=== PATIENT | male | born 1945 | race Caucasian/White ===

== ENCOUNTER 2017-01-07 08:49 | Emergency (ER) | payer MEDICARE ==
[2017-01-07 09:05] VITALS: BP 139/75
--- NOTE | 2017-01-07 09:46 | UC ---
Respiratory Complaint HPI - HPI Summary HPI Summary: congestion, sore throat in the morning, mild cough for about two weeks. Otc meds have not helped. no fever or pain. - History of Current Complaint Chief Complaint: UCRespiratory Stated Complaint: HEAD COLD Time Seen by Provider: 01/07/17 09:39 Hx Obtained From: Patient Onset/Duration: Gradual Onset Timing: Constant Severity Initially: Moderate Severity Currently: Moderate Character: Cough: Nonproductive Aggravating Factors: Deep Breaths Alleviating Factors: Nothing Associated Signs And Symptoms: Positive: URI, Nasal Congestion, Hoarseness. Negative: Dyspnea, Fever, Chills, Pleuritic Chest Pain, Wheezing, Hemoptysis, Dizziness, Calf Pain, Calf Swelling, Sinus Discomfort - Allergies/Home Medications Allergies/Adverse Reactions: Allergies Allergy/AdvReac Type Severity Reaction Status Date / Time No Known Allergies Allergy Verified 01/07/17 08:55 Home Medications: Home Medications Colchicine [Mitigare] 0.6 mg PO PRN 01/07/17 [History] Glipizide [Glipizide ER] 2.5 mg PO DAILY 01/07/17 [History Confirmed 01/07/17] Losartan Potassium 100 mg PO DAILY 01/07/17 [History Confirmed 01/07/17] Meloxicam [Mobic] 15 mg PO DAILY 01/07/17 [History Confirmed 01/07/17] Omeprazole CAP* [Prilosec CAP* 20 MG] 20 mg PO BID 01/07/17 [History Confirmed 01/07/17] Simvastatin TAB(NF) [Zocor 10 MG (NF)] 10 mg PO DAILY 01/07/17 [History Confirmed 01/07/17] metFORMIN* [Glucophage 500 MG TAB *] 500 mg PO BID 01/07/17 [History Confirmed 01/07/17] PMH/Surg Hx/FS Hx/Imm Hx Previously Healthy: No Endocrine History: Diabetes Cardiovascular History: Hypertension - Surgical History Surgical History: Yes Surgery Procedure, Year, and Place: kidney stent, hernia - Family History Known Family History: Positive: Other - no related uri symptoms. - Social History Alcohol Use: Rare Substance Use Type: None Smoking Status (MU): Former Smoker Type: Cigarettes Have You Smoked in the Last Year: No When Did the Patient Quit Smoking/Using Tobacco: 45 YRS AGO Review of Systems ENT: Sinus Congestion Respiratory: Cough All Other Systems Reviewed And Are Negative: Yes Physical Exam Triage Information Reviewed: Yes Appearance: Well-Appearing, No Pain Distress, Well-Nourished Vital Signs: Initial Vital Signs Temp 97.8 F 01/07/17 08:57 Pulse 63 01/07/17 08:57 Resp 18 01/07/17 08:57 BP 139/75 01/07/17 08:57 Pulse Ox 99 01/07/17 08:57 Vital Signs Reviewed: Yes Eye Exam: Normal Eyes: Positive: Conjunctiva Clear ENT Exam: Normal ENT: Positive: Pharyngeal erythema, Nasal congestion, TMs normal. Negative: Tonsillar swelling, Tonsillar exudate, Trismus Neck exam: Normal Neck: Positive: Supple, Nontender, No Lymphadenopathy Respiratory Exam: Normal Cardiovascular Exam: Normal Abdominal Exam: Normal Musculoskeletal Exam: Normal Neurological Exam: Normal Psychological Exam: Normal Skin Exam: Normal UC Diagnostic Evaluation - Laboratory O2 Sat by Pulse Oximetry: 99 Respiratory Course/Dx - Differential Dx/Diagnosis Differential Diagnosis/HQI/PQRI: Airway Obstruction, Aspiration, Asthma, CHF, Pulmonary Edema, Exacerbation Of COPD, Influenza, Laryngitis, Lower Resp Infection, Pulmonary Embolism, Sinusitis, Tuberculosis Provider Diagnoses: uri Discharge - Discharge Plan Condition: Good Disposition: HOME Prescriptions: Azithromyxin JASON (NF) [Z-Jason (Zithromax) 250 mg tabs #6] 2 tab PO .TODAY, THEN 1 DAILY #6 tab Patient Education Materials: Upper Respiratory Infection (ED) Referrals: Dakota Martino DO [Primary Care Provider] - If Needed
== END 2017-01-07 09:50 | disposition home or self-care (01) ==
LOC: UCCORT 08:49
DX: J06.9 Acute upper respiratory infection, unspecified (principal); E11.9 Type 2 diabetes mellitus without complications; I10 Essential (primary) hypertension; Z87.891 Personal history of nicotine dependence
CPT/HCPCS: 99202; G0463

== ENCOUNTER 2018-09-04 10:02 | Emergency (ER) | payer BC, MEDICARE | END 2018-09-04 10:50 | disposition left against medical advice (07) | LOC: UCCORT 10:02 | DX: Z53.21 Procedure and treatment not carried out due to patient leaving prior to being seen by health care provider (principal) ==